=== PATIENT | male | born 1990 ===

== ENCOUNTER 2021-01-13 04:40 | Emergency (ER) | payer OTHER ==
--- NOTE | 2021-01-13 05:12 | Emergency Department Report ---
HPI - General Time Seen by Provider: 01/13/21 04:54 - HPI HPI: This is a 30-year-old -[place] male presents to the emergency department via EMS for a mental health evaluation. The patient's girlfriend called EMS after the patient was seen agitated and acting abnormally. Apparently the patient was at their apartment complex and he was yelling at different apartments and banging on doors and was not redirectable. However, since EMS arrived, the patient has been completely nonverbal for them. The significant other apparently did not know that he had a diagnosis of bipolar disorder. She knew that he had stopped taking some type of medication, but apparently she t hought it was for a blood pressure. Unknown if the patient has any other medical or psychiatric conditions. He is currently a poor historian as he is also nonverbal for me. However, he will make eye contact, some occasional hand gestures, and nodding. ED Review of Systems ROS: Stated complaint: MH/PT STOP TAKING MEDS Other details as noted in HPI Comment: Unobtainable due to pts medical conditions Physical Exam - Physical Exam Physical Exam: GENERAL: The patient is well-developed well-nourished. HENT: Normocephalic. Atraumatic. Patient has moist mucous membranes. EYES: Extraocular motions are intact. NECK: Supple. Trachea is midline. CHEST/LUNGS: Clear to auscultation. There is no respiratory distress noted. HEART/CARDIOVASCULAR: Regular. There is no tachycardia. There is no murmur. ABDOMEN: Abdomen is soft, nontender. Patient has normal bowel sounds. SKIN: Skin is warm and dry. NEURO: The patient is awake, but is nonverbal. Thus far the patient has been cooperative. MUSCULOSKELETAL: There is no tenderness or deformity. There is no limitation range of motion. ED Medical Decision Making - Lab Data Result diagrams: 01/13/21 05:45 01/13/21 05:45 Lab Results 01/13/21 01/13/21 01/13/21 Range/Units 05:45 05:45 05:45 WBC 7.0 (4.5-11.0) K/mm3 RBC 5.21 H (3.65-5.03) M/mm3 Hgb 14.1 (11.8-15.2) gm/dl Hct 43.0 (35.5-45.6) % MCV 83 L (84-94) fl MCH 27 L (28-32) pg MCHC 33 (32-34) % RDW 13.7 (13.2-15.2) % Plt Count 298 (140-440) K/mm3 Lymph % (Auto) 30.0 (13.4-35.0) % [place] % (Auto) 7.7 H (0.0-7.3) % Eos % (Auto) 0.5 (0.0-4.3) % Baso % (Auto) 0.6 (0.0-1.8) % Lymph # (Auto) 2.1 (1.2-5.4) K/mm3 [place] # (Auto) 0.5 (0.0-0.8) K/mm3 Eos # (Auto) 0.0 (0.0-0.4) K/mm3 Baso # (Auto) 0.0 (0.0-0.1) K/mm3 Seg Neutrophils % 61.2 (40.0-70.0) % Seg Neutrophils # 4.3 (1.8-7.7) K/mm3 Sodium 142 (137-145) mmol/L Potassium 4.0 (3.6-5.0) mmol/L Chloride 102.0 (98-107) mmol/L Carbon Dioxide 28 (22-30) mmol/L Anion Gap 16 mmol/L BUN 13 (9-20) mg/dL Creatinine 1.0 (0.8-1.3) mg/dL Estimated GFR > 60 ml/min BUN/Creatinine Ratio 13 % Glucose 110 H (75-100) mg/dL Calcium 10.4 H (8.4-10.2) mg/dL Urine Color (Yellow) Urine Turbidity (Clear) Urine pH (5.0-7.0) Ur Specific [place] (1.003-1.030) Urine Protein (Negative) mg/dL Urine Glucose (UA) (Negative) mg/dL Urine Ketones (Negative) mg/dL Urine Blood (Negative) Urine Nitrite (Negative) Urine Bilirubin (Negative) Urine Urobilinogen (<2.0) mg/dL Ur Leukocyte Esterase (Negative) Urine WBC (Auto) (0.0-6.0) /HPF Urine RBC (Auto) (0.0-6.0) /HPF U Epithel Cells (Auto) (0-13.0) /HPF Urine Mucus /HPF Salicylates (2.8-20.0) mg/dL Urine Opiates Screen Urine Methadone Screen Acetaminophen (10.0-30.0) ug/mL Ur Barbiturates Screen Ur Phencyclidine Scrn Ur Amphetamines Screen U Benzodiazepines Scrn Urine Cocaine Screen U Marijuana (THC) Screen Drugs of Abuse Note Plasma/Serum Alcohol < 0.01 (0-0.07) % 01/13/21 01/13/21 01/13/21 Range/Units 05:45 05:45 Unknown WBC (4.5-11.0) K/mm3 RBC (3.65-5.03) M/mm3 Hgb (11.8-15.2) gm/dl Hct (35.5-45.6) % MCV (84-94) fl MCH (28-32) pg MCHC (32-34) % RDW (13.2-15.2) % Plt Count (140-440) K/mm3 Lymph % (Auto) (13.4-35.0) % [place] % (Auto) (0.0-7.3) % Eos % (Auto) (0.0-4.3) % Baso % (Auto) (0.0-1.8) % Lymph # (Auto) (1.2-5.4) K/mm3 [place] # (Auto) (0.0-0.8) K/mm3 Eos # (Auto) (0.0-0.4) K/mm3 Baso # (Auto) (0.0-0.1) K/mm3 Seg Neutrophils % (40.0-70.0) % Seg Neutrophils # (1.8-7.7) K/mm3 Sodium (137-145) mmol/L Potassium (3.6-5.0) mmol/L Chloride (98-107) mmol/L Carbon Dioxide (22-30) mmol/L Anion Gap mmol/L BUN (9-20) mg/dL Creatinine (0.8-1.3) mg/dL Estimated GFR ml/min BUN/Creatinine Ratio % Glucose (75-100) mg/dL Calcium (8.4-10.2) mg/dL Urine Color Yellow (Yellow) Urine Turbidity Clear (Clear) Urine pH 5.0 (5.0-7.0) Ur Specific [place] 1.017 (1.003-1.030) Urine Protein 100 mg/dl (Negative) mg/dL Urine Glucose (UA) Neg (Negative) mg/dL Urine Ketones Tr (Negative) mg/dL Urine Blood Sm (Negative) Urine Nitrite Neg (Negative) Urine Bilirubin Neg (Negative) Urine Urobilinogen < 2.0 (<2.0) mg/dL Ur Leukocyte Esterase Neg (Negative) Urine WBC (Auto) 1.0 (0.0-6.0) /HPF Urine RBC (Auto) < 1.0 (0.0-6.0) /HPF U Epithel Cells (Auto) < 1.0 (0-13.0) /HPF Urine Mucus 2+ /HPF Salicylates 1.4 L (2.8-20.0) mg/dL Urine Opiates Screen Urine Methadone Screen Acetaminophen < 5.0 L (10.0-30.0) ug/mL Ur Barbiturates Screen Ur Phencyclidine Scrn Ur Amphetamines Screen U Benzodiazepines Scrn Urine Cocaine Screen U Marijuana (THC) Screen Drugs of Abuse Note Plasma/Serum Alcohol (0-0.07) % 01/13/21 Range/Units Unknown WBC (4.5-11.0) K/mm3 RBC (3.65-5.03) M/mm3 Hgb (11.8-15.2) gm/dl Hct (35.5-45.6) % MCV (84-94) fl MCH (28-32) pg MCHC (32-34) % RDW (13.2-15.2) % Plt Count (140-440) K/mm3 Lymph % (Auto) (13.4-35.0) % [place] % (Auto) (0.0-7.3) % Eos % (Auto) (0.0-4.3) % Baso % (Auto) (0.0-1.8) % Lymph # (Auto) (1.2-5.4) K/mm3 [place] # (Auto) (0.0-0.8) K/mm3 Eos # (Auto) (0.0-0.4) K/mm3 Baso # (Auto) (0.0-0.1) K/mm3 Seg Neutrophils % (40.0-70.0) % Seg Neutrophils # (1.8-7.7) K/mm3 Sodium (137-145) mmol/L Potassium (3.6-5.0) mmol/L Chloride (98-107) mmol/L Carbon Dioxide (22-30) mmol/L Anion Gap mmol/L BUN (9-20) mg/dL Creatinine (0.8-1.3) mg/dL Estimated GFR ml/min BUN/Creatinine Ratio % Glucose (75-100) mg/dL Calcium (8.4-10.2) mg/dL Urine Color (Yellow) Urine Turbidity (Clear) Urine pH (5.0-7.0) Ur Specific [place] (1.003-1.030) Urine Protein (Negative) mg/dL Urine Glucose (UA) (Negative) mg/dL Urine Ketones (Negative) mg/dL Urine Blood (Negative) Urine Nitrite (Negative) Urine Bilirubin (Negative) Urine Urobilinogen (<2.0) mg/dL Ur Leukocyte Esterase (Negative) Urine WBC (Auto) (0.0-6.0) /HPF Urine RBC (Auto) (0.0-6.0) /HPF U Epithel Cells (Auto) (0-13.0) /HPF Urine Mucus /HPF Salicylates (2.8-20.0) mg/dL Urine Opiates Screen Negative Urine Methadone Screen Negative Acetaminophen (10.0-30.0) ug/mL Ur Barbiturates Screen Negative Ur Phencyclidine Scrn Negative Ur Amphetamines Screen Negative U Benzodiazepines Scrn Negative Urine Cocaine Screen Negative U Marijuana (THC) Screen Presumptive positive Drugs of Abuse Note Disclamer Plasma/Serum Alcohol (0-0.07) % - Medical Decision Making This patient presents for a mental health evaluation. Based on the information given by EMS that the patient was banging on doors and yelling at other apartments in his complex, and the fact that he is now nonverbal, the patient has been made a 1013. I believe the patient is nonverbal as part of acute psychosis. Vital signs are reassuring including being afebrile. I am waiting for blood to be drawn and a urine sample for urinalysis/UDS. We will continue to monitor the patient during his ED course and will evaluate the lab results to make sure the patient is medically cleared for psychiatric placement. He will be seen later today by the psychiatric team to assist with disposition. Critical care attestation.: If time is entered above; I have spent that time in minutes in the direct care of this critically ill patient, excluding procedure time. ED Disposition Clinical Impression: Acute psychosis, Bipolar disorder Disposition: [address] [place] [address] Is pt being admited?: No Condition: Stable Time of Disposition: 21:04
[2021-01-13 07:00] LABS: Basophils % (Auto) 0.6 % (0.0-1.8); Eosinophils % (Auto) 0.5 % (0.0-4.3); Hemoglobin 14.1 gm/dl (11.8-15.2); Lymphocytes # (Auto) 2.1 K/mm3 (1.2-5.4); Mean Corpuscular HGB Conc 33 % (32-34); Mean Corpuscular Volume 83 fl (84-94); Monocytes # (Auto) 0.5 K/mm3 (0.0-0.8); Monocytes % (Auto) 7.7 % (0.0-7.3); Platelet Count 298 K/mm3 (140-440); Red Blood Count 5.21 M/mm3 (3.65-5.03); Red Cell Distribution Width 13.7 % (13.2-15.2)
[2021-01-13 07:10] LABS: BUN/Creatinine Ratio 13; Blood Urea Nitrogen 13 mg/dL (9-20); Calcium 10.4 mg/dL (8.4-10.2); Hemolysis Index 1
[2021-01-13] MEDS ORDERED: LORazepam 2 MG/ML VIAL ONE (07:21)
[2021-01-13] MEDS ORDERED: LORazepam 2 MG/ML VIAL IM ONE (07:22)
[2021-01-13] MEDS ORDERED: ZIPRASIDONE MESYLATE 20 MG VIAL IM ONE ×2 (07:22)
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
--- NOTE | 2021-01-13 10:01 | Consultation ---
History of Present Illness - Reason for Consult Consult date: 01/13/21 Reason for consult: agitation, combative - History of Present Psychiatric Illness Per ER Note: This is a 30-year-old -[place] male presents to the emergency department via EMS for a mental health evaluation. The patient's girlfriend called EMS after the patient was seen agitated and acting abnormally. Apparently the patient was at their apartment complex and he was yelling at different apartments and banging on doors and was not redirectable. However, since EMS arrived, the patient has been completely nonverbal for them. The significant other apparently did not know that he had a diagnosis of bipolar disorder. She knew that he had stopped taking some type of medication, but apparently she thought it was for a blood pressure. Unknown if the patient has any other medical or psychiatric conditions. He is currently a poor historian as he is also nonverbal for me. However, he will make eye contact, some occasional hand gestures, and nodding. I attempted to evaluated 30y/o Alden Morgan after the girlfriend called 91 for abnormal behavior. The patient was in the isolation room. The nurse informed that the patient has been very agitated, combative with security. She says he was medicated. The patient would not awake for the evaluation. PAST MEDICAL HISTORY: None reported or document Family Psychiatric History: None reported or documented SOCIAL HISTORY Unable to obtain REVIEW OF SYSTEMS Unable to obtain MENTAL STATUS EXAMINATION Unable to obtain Assessment and Plan (1)Bipolar Disorder Treatment Plan Marilia DR 125mg po BID Risperidone 0.5mg po BID Geodon 20mg IM q4h prn agitation Medical: Per primary Disposition:recommend acute psychiatric inpatient treatment. Will follow Case staffed with Dr. Leija Medications and Allergies Allergies Allergy/AdvReac Type Severity Reaction Status Date / Time Unable to Assess Allergy Unverified 01/13/21 07:34 Mental Status Exam - Vital signs Last Vital Signs Temp 99.4 F 01/13/21 06:02 Pulse 89 01/13/21 06:02 Resp 18 01/13/21 06:02 BP 147/86 01/13/21 06:02 Pulse Ox 98 01/13/21 06:02 Results Result Diagrams: 01/13/21 05:45 01/13/21 05:45 Abnormal lab results 01/13/21 01/13/21 Range/Units 05:45 05:45 RBC 5.21 H (3.65-5.03) M/mm3 MCV 83 L (84-94) fl MCH 27 L (28-32) pg [place] % (Auto) 7.7 H (0.0-7.3) % Glucose 110 H (75-100) mg/dL Calcium 10.4 H (8.4-10.2) mg/dL All other labs normal.
[2021-01-13] MEDS ORDERED: ZIPRASIDONE MESYLATE 20 MG VIAL IM PRN (10:06)
[2021-01-13] MEDS ORDERED: LORazepam 2 MG/ML VIAL IM PRN (11:25)
[2021-01-13] MEDS ORDERED: diphenhydrAMINE 25 MG CAP PO PRN (11:25)
--- NOTE | 2021-01-13 11:28 | Event Note ---
Date: 01/13/21 The patient was evaluated in the emergency department for symptoms described in the history of present illness. He/she was evaluated in the context of the global COVID-19 pandemic, which necessitated consideration that the patient might be at risk for infection with the virus that causes COVID-19. Institutional protocols and algorithms that pertain to the evaluation of patients at risk for COVID-19 are in a state of rapid change based on information released by regulatory bodies including the CDC and federal and state organizations. These policies and algorithms were followed during the patient's care in the emergency department. Please note that these policies, procedures and recommendations changed on a rapid basis. ER, psychiatric, nursing team documentation reviewed and appreciated. Laboratory studies reviewed and appreciated. Patient has been medicated for aggressive behavior, and is resting comfortably on his side, in no acute distress, breathing spontaneously. Salicylate level, acetaminophen level has been added onto his existing laboratory studies. Urinalysis and drug screen pending. A 1013 was ordered. Psychiatric recommendations reviewed and appreciated. Assuming serum toxicology studies are unremarkable, we would continue to consider this patient medically suitable for psychiatric placement and disposi tion. As needed medications have also been ordered to assist. Covid swab ordered for Placement. Vital Signs 01/13/21 01/13/21 06:02 07:34 Temperature 99.4 F Pulse Rate 89 Respiratory 18 Rate Blood Pressure 147/86 [Left] O2 Sat by Pulse 98 99 Oximetry Lab Results 01/13/21 01/13/21 01/13/21 Range/Units 05:45 05:45 05:45 WBC 7.0 (4.5-11.0) K/mm3 RBC 5.21 H (3.65-5.03) M/mm3 Hgb 14.1 (11.8-15.2) gm/dl Hct 43.0 (35.5-45.6) % MCV 83 L (84-94) fl MCH 27 L (28-32) pg MCHC 33 (32-34) % RDW 13.7 (13.2-15.2) % Plt Count 298 (140-440) K/mm3 Lymph % (Auto) 30.0 (13.4-35.0) % [place] % (Auto) 7.7 H (0.0-7.3) % Eos % (Auto) 0.5 (0.0-4.3) % Baso % (Auto) 0.6 (0.0-1.8) % Lymph # (Auto) 2.1 (1.2-5.4) K/mm3 [place] # (Auto) 0.5 (0.0-0.8) K/mm3 Eos # (Auto) 0.0 (0.0-0.4) K/mm3 Baso # (Auto) 0.0 (0.0-0.1) K/mm3 Seg Neutrophils % 61.2 (40.0-70.0) % Seg Neutrophils # 4.3 (1.8-7.7) K/mm3 Sodium 142 (137-145) mmol/L Potassium 4.0 (3.6-5.0) mmol/L Chloride 102.0 (98-107) mmol/L Carbon Dioxide 28 (22-30) mmol/L Anion Gap 16 mmol/L BUN 13 (9-20) mg/dL Creatinine 1.0 (0.8-1.3) mg/dL Estimated GFR > 60 ml/min BUN/Creatinine Ratio 13 % Glucose 110 H (75-100) mg/dL Calcium 10.4 H (8.4-10.2) mg/dL Plasma/Serum Alcohol < 0.01 (0-0.07) % 13: 07; 01/13/2021 Remainder of laboratory studies unremarkable. Medically suitable for psychiatric placement, consultation and disposition at this time. Covid swab pending, but not hypoxic. This patient does not have an immediate medical contraindication to psychiatric disposition at this time Lab Results 01/13/21 01/13/21 01/13/21 Range/Units 05:45 05:45 05:45 WBC 7.0 (4.5-11.0) K/mm3 RBC 5.21 H (3.65-5.03) M/mm3 Hgb 14.1 (11.8-15.2) gm/dl Hct 43.0 (35.5-45.6) % MCV 83 L (84-94) fl MCH 27 L (28-32) pg MCHC 33 (32-34) % RDW 13.7 (13.2-15.2) % Plt Count 298 (140-440) K/mm3 Lymph % (Auto) 30.0 (13.4-35.0) % [place] % (Auto) 7.7 H (0.0-7.3) % Eos % (Auto) 0.5 (0.0-4.3) % Baso % (Auto) 0.6 (0.0-1.8) % Lymph # (Auto) 2.1 (1.2-5.4) K/mm3 [place] # (Auto) 0.5 (0.0-0.8) K/mm3 Eos # (Auto) 0.0 (0.0-0.4) K/mm3 Baso # (Auto) 0.0 (0.0-0.1) K/mm3 Seg Neutrophils % 61.2 (40.0-70.0) % Seg Neutrophils # 4.3 (1.8-7.7) K/mm3 Sodium 142 (137-145) mmol/L Potassium 4.0 (3.6-5.0) mmol/L Chloride 102.0 (98-107) mmol/L Carbon Dioxide 28 (22-30) mmol/L Anion Gap 16 mmol/L BUN 13 (9-20) mg/dL Creatinine 1.0 (0.8-1.3) mg/dL Estimated GFR > 60 ml/min BUN/Creatinine Ratio 13 % Glucose 110 H (75-100) mg/dL Calcium 10.4 H (8.4-10.2) mg/dL Urine Color (Yellow) Urine Turbidity (Clear) Urine pH (5.0-7.0) Ur Specific [place] (1.003-1.030) Urine Protein (Negative) mg/dL Urine Glucose (UA) (Negative) mg/dL Urine Ketones (Negative) mg/dL Urine Blood (Negative) Urine Nitrite (Negative) Urine Bilirubin (Negative) Urine Urobilinogen (<2.0) mg/dL Ur Leukocyte Esterase (Negative) Urine WBC (Auto) (0.0-6.0) /HPF Urine RBC (Auto) (0.0-6.0) /HPF U Epithel Cells (Auto) (0-13.0) /HPF Urine Mucus /HPF Salicylates (2.8-20.0) mg/dL Urine Opiates Screen Urine Methadone Screen Acetaminophen (10.0-30.0) ug/mL Ur Barbiturates Screen Ur Phencyclidine Scrn Ur Amphetamines Screen U Benzodiazepines Scrn Urine Cocaine Screen Plasma/Serum Alcohol < 0.01 (0-0.07) % 01/13/21 01/13/21 01/13/21 Range/Units 05:45 05:45 Unknown WBC (4.5-11.0) K/mm3 RBC (3.65-5.03) M/mm3 Hgb (11.8-15.2) gm/dl Hct (35.5-45.6) % MCV (84-94) fl MCH (28-32) pg MCHC (32-34) % RDW (13.2-15.2) % Plt Count (140-440) K/mm3 Lymph % (Auto) (13.4-35.0) % [place] % (Auto) (0.0-7.3) % Eos % (Auto) (0.0-4.3) % Baso % (Auto) (0.0-1.8) % Lymph # (Auto) (1.2-5.4) K/mm3 [place] # (Auto) (0.0-0.8) K/mm3 Eos # (Auto) (0.0-0.4) K/mm3 Baso # (Auto) (0.0-0.1) K/mm3 Seg Neutrophils % (40.0-70.0) % Seg Neutrophils # (1.8-7.7) K/mm3 Sodium (137-145) mmol/L Potassium (3.6-5.0) mmol/L Chloride (98-107) mmol/L Carbon Dioxide (22-30) mmol/L Anion Gap mmol/L BUN (9-20) mg/dL Creatinine (0.8-1.3) mg/dL Estimated GFR ml/min BUN/Creatinine Ratio % Glucose (75-100) mg/dL Calcium (8.4-10.2) mg/dL Urine Color Yellow (Yellow) Urine Turbidity Clear (Clear) Urine pH 5.0 (5.0-7.0) Ur Specific [place] 1.017 (1.003-1.030) Urine Protein 100 mg/dl (Negative) mg/dL Urine Glucose (UA) Neg (Negative) mg/dL Urine Ketones Tr (Negative) mg/dL Urine Blood Sm (Negative) Urine Nitrite Neg (Negative) Urine Bilirubin Neg (Negative) Urine Urobilinogen < 2.0 (<2.0) mg/dL Ur Leukocyte Esterase Neg (Negative) Urine WBC (Auto) 1.0 (0.0-6.0) /HPF Urine RBC (Auto) < 1.0 (0.0-6.0) /HPF U Epithel Cells (Auto) < 1.0 (0-13.0) /HPF Urine Mucus 2+ /HPF Salicylates 1.4 L (2.8-20.0) mg/dL Urine Opiates Screen Urine Methadone Screen Acetaminophen < 5.0 L (10.0-30.0) ug/mL Ur Barbiturates Screen Ur Phencyclidine Scrn Ur Amphetamines Screen U Benzodiazepines Scrn Urine Cocaine Screen Plasma/Serum Alcohol (0-0.07) % 01/13/21 Range/Units Unknown WBC (4.5-11.0) K/mm3 RBC (3.65-5.03) M/mm3 Hgb (11.8-15.2) gm/dl Hct (35.5-45.6) % MCV (84-94) fl MCH (28-32) pg MCHC (32-34) % RDW (13.2-15.2) % Plt Count (140-440) K/mm3 Lymph % (Auto) (13.4-35.0) % [place] % (Auto) (0.0-7.3) % Eos % (Auto) (0.0-4.3) % Baso % (Auto) (0.0-1.8) % Lymph # (Auto) (1.2-5.4) K/mm3 [place] # (Auto) (0.0-0.8) K/mm3 Eos # (Auto) (0.0-0.4) K/mm3 Baso # (Auto) (0.0-0.1) K/mm3 Seg Neutrophils % (40.0-70.0) % Seg Neutrophils # (1.8-7.7) K/mm3 Sodium (137-145) mmol/L Potassium (3.6-5.0) mmol/L Chloride (98-107) mmol/L Carbon Dioxide (22-30) mmol/L Anion Gap mmol/L BUN (9-20) mg/dL Creatinine (0.8-1.3) mg/dL Estimated GFR ml/min BUN/Creatinine Ratio % Glucose (75-100) mg/dL Calcium (8.4-10.2) mg/dL Urine Color (Yellow) Urine Turbidity (Clear) Urine pH (5.0-7.0) Ur Specific [place] (1.003-1.030) Urine Protein (Negative) mg/dL Urine Glucose (UA) (Negative) mg/dL Urine Ketones (Negative) mg/dL Urine Blood (Negative) Urine Nitrite (Negative) Urine Bilirubin (Negative) Urine Urobilinogen (<2.0) mg/dL Ur Leukocyte Esterase (Negative) Urine WBC (Auto) (0.0-6.0) /HPF Urine RBC (Auto) (0.0-6.0) /HPF U Epithel Cells (Auto) (0-13.0) /HPF Urine Mucus /HPF Salicylates (2.8-20.0) mg/dL Urine Opiates Screen Negative Urine Methadone Screen Negative Acetaminophen (10.0-30.0) ug/mL Ur Barbiturates Screen Negative Ur Phencyclidine Scrn Negative Ur Amphetamines Screen Negative U Benzodiazepines Scrn Negative Urine Cocaine Screen Negative Plasma/Serum Alcohol (0-0.07) % 01/13/2021 05: 54 PM. The patient is still in seclusion. He does not respond to verbal techniques. Nursing team is very concerned about this patient as he is unpredictable, and physically violent. Because the patient is still not communicating, cannot contract for safety, is known to be physically violent, and still appears to be psychotic, he will be maintained in seclusion for his safety, staff safety, and patient safety. The patient does not respond to verbal de-escalation techniques, and has not responded to show of force. [id number] evaluation performed. Resting comfortably, breathing spontaneously, remains medically suitable for psychiatric placement in consultation at this time.
[2021-01-13 12:45] LABS: Bilirubin,Urine NEG (Negative); Blood,Urine SM (Negative); Color,Urine Yellow (Yellow); Mucus,Urine 2+ /HPF; RBC,Urine < 1.0 /HPF (0.0-6.0); Urobilinogen,Urine < 2.0 mg/dL (<2.0)
[2021-01-13 13:03] LABS: Amphetamine Screen,Urine Negative; Benzodiazepines Screen,Urine Negative; Cocaine Screen,Urine Negative; Methadone Screen,Urine Negative; Opiate Screen,Urine Negative
[2021-01-13 14:17] LABS: Cannabinoid Screen,Urine PRESUMPTIVE POSITIVE
[2021-01-13] MEDS: DIVALPROEX DR 125 MG TAB PO SCH (15:30)
[2021-01-13] MEDS: risperiDONE 0.25 MG TAB PO SCH (15:30)
[2021-01-14] MEDS: risperiDONE 0.25 MG TAB PO SCH ×2 (01:55→11:10)
[2021-01-14] MEDS: DIVALPROEX DR 125 MG TAB PO SCH ×2 (01:55→11:10)
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
--- NOTE | 2021-01-14 11:41 | Progress Note ---
Subjective - Reason for Consult Consult date: 01/14/21 Reason for consult: agitation - Chief Complaint Chief complaint: The patient was seen today. He is not speaking. He appears to responding to internal stimuli. His thoughts are disorganized. He throws up the peace sign as I'm trying to speak with him. He is shrugging his shoulders, nodding and whispering as I ask him questions. REVIEW OF SYSTEMS Unable to obtain MENTAL STATUS EXAMINATION Unable to obtain Assessment and Plan (1)Bipolar Disorder Treatment Plan Increase Risperidone 1mg po BID Geodon 20mg IM q4h prn agitation Medical: Per primary Disposition:recommend acute psychiatric inpatient treatment. Will follow Case staffed with Dr. Leija Mental Status Exam - Vital signs Last Vital Signs Temp 97.1 F L 01/13/21 20:07 Pulse 98 H 01/13/21 20:07 Resp 18 01/13/21 20:07 BP 147/96 01/13/21 20:07 Pulse Ox 99 01/13/21 10:34
[2021-01-14 13:24] VITALS: BP 133/106
[2021-01-14] MEDS ORDERED: risperiDONE 1 MG TAB PO SCH (22:00)
== END 2021-01-14 17:00 | disposition home or self-care (01) ==
LOC: ED 04:40
DX: F23 Brief psychotic disorder (principal); F31.9 Bipolar disorder, unspecified; Z20.822 Contact with and (suspected) exposure to COVID-19
CPT/HCPCS: 36415; 80048; 80307; 81001; 85025; 96372; 99284; J2060; J3486; U0003; 80320; G0480